=== PATIENT | male | born 1985 | race Caucasian/White ===

== ENCOUNTER → 2022-05-30 12:22 | Outpatient (CLI) | payer OTHER, SELFPAY | DX: G56.00 Carpal tunnel syndrome, unspecified upper limb (principal) | CPT/HCPCS: 95886; 95912 ==

== ENCOUNTER → 2022-09-16 | Outpatient (CLI) | payer OTHER, SELFPAY ==
--- NOTE | 2022-09-16 | DI.MRI.S_ITS ---
PROCEDURE: MR LUMBAR SPINE WO CON INDICATIONS: LOW BACK PAIN TECHNIQUE: Noncontrast sagittal T1 spin echo and T2 fast echo, sagittal STIR, and T2 fast spin echo through the lumbar spine. In cases with scoliosis, additional coronal T2 fast spin echo may be performed. COMPARISON: None. FINDINGS: Image quality: Excellent. Alignment and Curvature: There is normal bony alignment. Bone Marrow: Marrow is of normal overall signal. No acute vertebral body compression fractures. Spinal Cord: Conus medullaris terminates at the L1 level. Visualized cord demonstrates normal signal and size. Paraspinous Soft Tissues: No paravertebral masses. T12-L1: No significant disc bulge. The foramina and central canal are patent. L1-L2: No significant disc bulge. The foramina and central canal are patent. L2-L3: No significant disc bulge. The foramina and central canal are patent. L3-L4: The disc is desiccated consistent with degeneration. Central annular tear. Diffuse disc bulge causing mild bilateral foraminal stenosis. The central canal is patent. L4-L5: The disc is desiccated consistent with degeneration. Central annular tear. Diffuse disc bulge causing mild bilateral foraminal stenosis. The central canal is patent. L5-S1: The disc is desiccated consistent with degeneration. Central annular tear. Diffuse disc bulge causing mild right and moderate left foraminal stenosis. The central canal is patent. IMPRESSION: 1. Degenerative disc disease at C3-4, C4-5, and C5-6 with diffuse disc bulges and central annular tear is causing foraminal stenosis as detailed above. 2. No significant central canal stenosis. 3. No acute abnormality. 4. No abnormal cord signal. Dictated by: Wilber Pendleton M.D. on 09/16/2022 at 15:14 Approved by: Wilber Pendleton M.D. on 09/16/2022 at 15:17
== END ==
LOC: MRI 13:13
DX: M51.36 Other intervertebral disc degeneration, lumbar region (principal); M51.37 Other intervertebral disc degeneration, lumbosacral region; M48.061 Spinal stenosis, lumbar region without neurogenic claudication; M48.07 Spinal stenosis, lumbosacral region; M43.17 Spondylolisthesis, lumbosacral region; M54.50 Low back pain, unspecified
CPT/HCPCS: 72148

== ENCOUNTER → 2022-12-02 14:42 | Outpatient (CLI) | payer OTHER, SELFPAY ==
--- NOTE | 2022-12-02 14:46 | DI.RAD.S_ITS ---
PROCEDURE: XR LUMBAR SPINE MIN 4V INDICATIONS: UNSPEC BACK PAIN TECHNIQUE: 5 views of the lumbar spine acquired, including flexion and extension views. COMPARISON: [facility], MR, MR LUMBAR SPINE WO CON, 09/16/2022, 13:18. FINDINGS: Bones: 5 nonrib-bearing vertebrae are present. Trace levoconvex curvature. Grade 1 anterolisthesis of L5 on S1 is seen due to bilateral L5 pars defects as seen on prior MRI. No vertebral body compression fractures. No suspicious bony lesions. Soft tissues: Overlying bowel gas pattern is normal. No suspicious soft tissue calcifications. Flexion/extension: There is normal range of motion, with preserved alignment. IMPRESSION: Bilateral spondylolysis of L5 with grade 1 anterolisthesis of L5 on S1. No abnormal subluxation on flexion or extension view. Approved by: Sarmad Stapleton M.D. on 12/02/2022 at 16:58
== END ==
PROVIDERS: Referring Provider Physician Assistant Medical; Visit Provider Physician Assistant Medical
DX: M54.9 Dorsalgia, unspecified (principal); M43.17 Spondylolisthesis, lumbosacral region
CPT/HCPCS: 72110